=== PATIENT | male | born 1960 ===

== ENCOUNTER 2017-07-30 09:54 | Emergency (ER) | payer OTHER ==
[2017-07-30 10:01] VITALS: TEMP 97.4
--- NOTE | 2017-07-30 10:45 | C.PDOC ---
History Of Present Illness 57-YEAR-OLD MALE, PRESENTS TO THE EMERGENCY DEPARTMENT WITH COMPLAINTS OF L FOOT INJURY ONSET YEST. ACCID FELL DOWN STAIRS, STRUCK 1ST TOE. CO PAIN, SWELLING TO AREA. NO OTHER ASSOC SX. EXAM NAD EXT L FOOT +MILD SWELLING L 1 MCP NO DEFORM. AROM WO DIFF SKIN MIN LOCAL ERYTHEMA; INTACT Time Seen by Provider: 07/30/17 10:42 Chief Complaint (Nursing): Lower Extremity Problem/Injury History Per: Patient History/Exam Limitations: no limitations Past Medical History Reviewed: Historical Data, Nursing Documentation, Vital Signs Vital Signs: Last Vital Signs Temp 97.4 F L 07/30/17 09:57 Pulse 72 07/30/17 10:54 Resp 18 07/30/17 10:54 BP 145/75 07/30/17 10:54 Pulse Ox 97 07/30/17 10:54 Surgical History: Appendectomy Family History: States: No Known Family Hx - Social History Hx Alcohol Use: No Hx Substance Use: No - Immunization History Hx Tetanus Toxoid Vaccination: No Hx Influenza Vaccination: No Hx Pneumococcal Vaccination: No Review Of Systems Except As Marked, All Systems Reviewed And Found Negative. Constitutional: Negative for: Fever Respiratory: Negative for: Shortness of Breath Musculoskeletal: Positive for: Foot Pain (L FOOT INJURY) Physical Exam - Physical Exam Appears: Non-toxic, No Acute Distress Skin: Warm, Dry, Other (MIN LOCAL ERYTHEMA; INTACT) Head: Atraumatic, Normacephalic Eye(s): bilateral: Normal Inspection Nose: Normal Oral Mucosa: Moist Lips: Normal Appearing Neck: Normal ROM ( ) Chest: Symmetrical Respiratory: No Accessory Muscle Use Extremity: Other (L FOOT +MILD SWELLING L 1 MCP NO DEFORM. AROM WO DIFF) ED Course And Treatment O2 Sat by Pulse Oximetry: 98 - Other Rad -+ X-Ray: Interpreted by Me (NEG) Disposition Counseled Patient/Family Regarding: Studies Performed, Diagnosis, Need For Followup - Disposition Referrals: [facility] [Outside] [facility] [Outside] Disposition: HOME/ ROUTINE Disposition Time: 10:45 Condition: GOOD Instructions: Foot Contusion (ED) Forms: [employer] (Czech) Print Language: FRISIAN - Clinical Impression Clinical Impression: Toe contusion - Scribe Statement The provider has reviewed the documentation as recorded by the Scribe (Alma Disla) All medical record entries made by the Scribe were at my direction and personally dictated by me. I have reviewed the chart and agree that the record accurately reflects my personal performance of the history, physical exam, medical decision making, and the department course for this patient. I have also personally directed, reviewed, and agree with the discharge instructions and disposition.
[2017-07-30 10:55] VITALS: BP 145/75; PULSE 72; RESP 18
[2017-07-30 11:34] VITALS: O2SAT 98
--- NOTE | 2017-07-30 12:51 | RAD ---
PROCEDURE: Left Foot Radiographs. HISTORY: post fall FT 8 COMPARISON: None. FINDINGS: BONES: No evidence of acute displaced fracture nor dislocation. The osseous structures appear intact so far as can be seen. Probable small benign cystic focus within the anteromedial aspect head 1st metatarsal. There is a small plantar surface calcaneal enthesophyte. JOINTS: Minor hallux valgus deformity with slight overgrowth of the head of the 1st metatarsal and minimal DJD 1st MTP joint. SOFT TISSUES: Normal. OTHER FINDINGS: None. IMPRESSION: No evidence of acute displaced fracture nor dislocation. If symptoms persist or occult fracture suspected clinically recommend repeat radiographs in 5-10 days as most fractures should become radiographically evident in this timeframe.
== END 2017-07-30 10:57 | disposition home or self-care (01) ==
LOC: C.ER 09:54
DX: S90.112A Contusion of left great toe without damage to nail, initial encounter (principal); W10.9XXA Fall (on) (from) unspecified stairs and steps, initial encounter

== ENCOUNTER 2018-03-19 10:12 | Emergency (ER) | payer OTHER ==
[2018-03-19 10:32] VITALS: BP 164/91; PULSE 86; RESP 18; TEMP 98.4; O2SAT 97
--- NOTE | 2018-03-19 11:05 | C.PDOC ---
History Of Present Illness Patient is a 57 y/o male who presents to the ED via transfer with a complaint of recurring left lower back pain for the last 1 week. Patient was seen 12/2017 for the same, stating symptoms improved slightly since; patient states current pain is similar to prior but more intense. Patient admits taking unknown medications by PMD without relief; PMD is on vacation and patient was unable to be seen today, prompting ED visit. Patient describes pain as sharp and admits radiation to left hip/buttock area. Denies any weakness or numbness. VIA TRANS CO RECUR L LOWER BACK PAIN X 1 WEEK. CURRENT SX SIM TO PRIOR, EVAL 12/2017 FOR SAME. PS SX IMPROVED BUT STILL W RESIDUAL. CURRENT PAIN MORE INTENSE. FU PMD, GIVEN UNK MEDS BUT NO IMPROVE. PS TRIED TO SEE PMD TODAY BUT IS ONVACATION. L LOWER BACK RADIATION L HIP/BUTTOCK, SHARP. NO ASSOC WEAK/NUMB EXAM MOD DIST NONTOXIC BACK LIMITED FULL EXTENSION, MOVEMENT DUE TO PAIN. NONTEND. NO SPINAL TEND NEURO INTACT SKIN NEG ADVISED FU PMD THIS WEEK, CONSIDER POSSIBLE MRI Time Seen by Provider: 03/19/18 10:47 Chief Complaint (Nursing): Back Pain History Per: Patient History/Exam Limitations: no limitations Onset/Duration Of Symptoms: Days (1 week), Worse Since Current Symptoms Are (Timing): Still Present Quality Of Discomfort: Sharp Previous Symptoms: Back Pain Associated Symptoms: denies: New Weakness, New Numbness Recent travel outside of the [place]: No Past Medical History Reviewed: Historical Data, Nursing Documentation, Vital Signs Vital Signs: Last Vital Signs Temp 98.4 F 03/19/18 10:30 Pulse 86 03/19/18 10:30 Resp 18 03/19/18 10:30 BP 164/91 H 03/19/18 10:30 Pulse Ox 97 03/19/18 11:06 - Medical History PMH: HTN Surgical History: Appendectomy Family History: States: No Known Family Hx - Social History Hx Tobacco Use: No Hx Alcohol Use: No Hx Substance Use: No - Immunization History Hx Tetanus Toxoid Vaccination: No Hx Influenza Vaccination: No Hx Pneumococcal Vaccination: No Review Of Systems Musculoskeletal: Positive for: Back Pain (lower back) Neurological: Negative for: Weakness, Numbness Physical Exam - Physical Exam Appears: Non-toxic, In Acute Distress (moderate) Skin: Normal Color, Warm, Dry, No Rash, No Ecchymosis Oral Mucosa: Moist Back: No Vertebral Tenderness, Decreased ROM (limited full extension and movement secondary to pain), No Paraspinal Tenderness Extremity: No Tenderness Neurological/Psych: Oriented x3, Normal Speech, Normal Cognition, Other (no focal deficits) Gait: Steady ED Course And Treatment O2 Sat by Pulse Oximetry: 97 Progress Note: Tylenol, flexeril, neurontin, and motrin administered. On re- eval, patient is resting comfortably and stable for discharge. Discharge instructions discussed with patient and advised to follow up with PMD this week ; patient advised to consider possible MRI. Disposition Counseled Patient/Family Regarding: Diagnosis, Need For Followup, Rx Given - Disposition Referrals: YOUR,PMD [Other] Disposition: HOME/ ROUTINE Disposition Time: 11:04 Condition: IMPROVED Prescriptions: Acetaminophen [Tylenol Extra Strength] 2 tab PO Q6 #30 tablet Cyclobenzaprine [Flexeril] 10 mg PO TID #15 tab Dexamethasone [Decadron] 8 mg PO ONCE #2 tab Gabapentin [Neurontin] 300 mg PO TID #30 cap Ibuprofen [Motrin] 600 mg PO Q6 #30 tab Instructions: Sciatica (DC) Forms: [employer] (Turkish) Print Language: FRISIAN - Clinical Impression Clinical Impression: Sciatica - Scribe Statement The provider has reviewed the documentation as recorded by the Scribnorm Martin All medical record entries made by the Scribe were at my direction and personally dictated by me. I have reviewed the chart and agree that the record accurately reflects my personal performance of the history, physical exam, medical decision making, and the department course for this patient. I have also personally directed, reviewed, and agree with the discharge instructions and disposition.
== END 2018-03-19 11:22 | disposition home or self-care (01) ==
LOC: C.ER 10:12
DX: M54.30 Sciatica, unspecified side (principal)